=== PATIENT | female | born 1960 | race Caucasian/White ===

== ENCOUNTER 2024-10-30 09:39 | Day surgery (SDC) | payer BC, SELFPAY ==
[2024-10-26 13:39] VITALS: BMI 31.4
--- NOTE | 2024-10-29 00:01 | EKG_ITS ---
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
[2024-10-29 11:43] LABS: Basophils # (Auto) 0.1 Thou/mm3 (0.0-0.2); Basophils % (Auto) 1 % (0-2.5); Eosinophils # (Auto) 0.2 Thou/mm3 (0.0-0.5); Eosinophils % (Auto) 2 % (0-10); Hematocrit 40.5 % (36.0-46.0); Hemoglobin 12.9 g/dL (12.0-16.0); Immature Granulocytes % (Auto) 1 % (0-0); Immature Granulocytes Auto 0.08 Thou/mm3 (0.00-0.00); Lymphocytes # (Auto) 3.3 Thou/mm3 (1.0-4.8); Lymphocytes % (Auto) 32 % (10-50); Mean Corpuscular HGB Conc 31.9 g/dl (31.0-37.0); Mean Corpuscular Hemoglobin 29.8 pg (25.0-35.0); Mean Corpuscular Volume 94 fL (80-100); Monocytes # (Auto) 0.8 Thou/mm3 (0.0-0.8); Monocytes % (Auto) 8 % (0-12); Neutrophils # (Auto) 5.8 Thou/mm3 (1.8-7.7); Neutrophils % (Auto) 57 % (37-80); Nucleated Red Blood Cell % 0 /100 WBC (0); Platelet Count 483 Thou/mm3 (140-440); RDW Standard Deviation 46.5 fL (36.4-46.3); Red Blood Count 4.33 Miln/mm3 (4.00-5.20); White Blood Count 10.3 Thou/mm3 (3.6-11.0)
[2024-10-29 12:00] LABS: Partial Thromboplastin Time 24.8 Seconds (22.0-36.0); Prothrombin Time 10.5 Seconds (9.0-12.2)
[2024-10-29 12:04] LABS: Anion Gap 8 (7-16); BUN/Creatinine Ratio 15 Ratio (12-20); Blood Urea Nitrogen 15 mg/dL (9-23); Calcium 9.8 mg/dL (8.3-10.6); Carbon Dioxide 25.7 mMol/L (20.0-31.0); Chloride 106 mMol/L (98-107); Estimated Creatinine Clearance 55.7 mL/min (>60); Glucose 93 mg/dL (74-106); Osmolality,Calculated 280 (275-295); Potassium 3.9 mMol/L (3.4-5.1); Sodium 140 mMol/L (136-145); eGFR > 60 See Note
[2024-10-30] VITALS (13 sets, daily range): BP systolic 111–153; BP diastolic 64–79; PULSE 63–73; RESP 12–22; TEMP 36.2–36.9; O2SAT 97–99
--- NOTE | 2024-10-30 13:55 | PC.NURSE ---
venous shealth removed at 1340. 10min manual pressure applied. site is soft, flat, non tender, and no hematoma present.
--- NOTE | 2024-10-30 14:31 | ESOP_ITS ---
RE: ANCELMO CONROY : 1960 PROCEDURE PERFORMED: 1. Right and left heart cardiac catheterization, selective coronary angiogram, left ventricular angiogram, CPT 44858. 2. Conscious sedation 40 minute duration. 3. Ultrasound guidance access of the right radial artery. 4. Aortic root angiogram. DIAGNOSIS: Valvular heart disease, aortic and mitral regurgitation, abnormal stress test, angina pectoris. HISTORY AND INDICATIONS: The patient is a 64-year-old female with history of chronic mitral regurgitation as well as moderate to severe aortic regurgitation, hypertension, and sharpness within exertion. There was also mild aortic stenosis that lasted 2 meters per second. Because of symptomatic aortic valve regurgitation and also abnormal stresses, right and left heart catheterization and coronary angiogram was recommended for further assessment. DESCRIPTION OF PROCEDURE: The patient was brought to cardiac catheterization laboratory where she was given conscious sedation with 2 mg of Versed and 75 mcg fentanyl, right radial artery cannulated by micropuncture technique. After giving 1% hydrocodone, ultrasound guidance was used, documented, and right radial artery was cannulated and 6-Samoan Glidesheath was introduced. Right femoral vein was cannulated by Jomar's technique with 7-Samoan sheath was introduced. Right heart catheter was performed with Redfield-Emma catheter. The patient was recovered. Left heart catheterization was performed by 5-Samoan pigtail catheter. Left ventricular angiogram was performed. Subsequently, aortic root angiogram was also performed. Selective right and left coronary angiogram performed by TIG-4 diagnostic, 5-Samoan TIG-4 catheter and the patient tolerated the procedure well without complications. TR band was obtained. Hemostasis was secured in the right radial artery. The patient was also given radial cocktail right after the placement of the sheath. Femoral vein sheath was removed manual compression plate. No complications. Estimated blood loss 0. Coronary angiogram showed following findings: Right coronary artery large and dominant. Appeared normal. Left coronary artery system: Left main coronary artery is normal. Left anterior descending and circumflex arteries appear normal. No evidence of obstructive coronary artery disease, atherosclerosis. 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 Left ventricular angiogram showed normal left ventricular wall motion. Ejection fraction 70% with evidence of mitral valve prolapse and mild mitral regurgitation. Hemodynamics as follows: Right atrial pressure was found to be 4 mmHg, RV pressure is 16/3 mmHg, PA pressure 15/5 mmHg. PA wedge pressure is 4 mmHg. Left ventricular pressure is 118/7. Left ventricular pressure 120/7 mmHg. Aortic pressure is 116/87. There is a gradient of 5 across the aortic valve, mild stenosis. SUMMARY OF FINDINGS: 1. Normal nonobstructive epicardial coronary arteries. 2. Normal hemodynamics. 3. Normal right heart pressure. No pulmonary hypertension. 4. Moderate chronic aortic regurgitation with mild stenosis. 5. Mild mitral valve regurgitation. RECOMMENDATIONS: Continue medical management. No need for aortic valve replacement. Her shortness of breath is possibly not due to cardiac causes based of these findings. DT: 13:49:23 TT: 14:30:00 Ref: [id number] - TID: [id number]
--- NOTE | 2024-10-30 16:41 | PC.NURSE ---
1640 patient discharged home in wheelchair with all belongings.
== END 2024-10-30 16:40 | disposition home or self-care (01) ==
PROVIDERS: PCP Specialist; Referring Provider Internal Medicine Cardiovascular Disease; Visit Provider Internal Medicine Cardiovascular Disease
PROC: (CPT 93460; principal; 2024-10-30 10:30)
DX: I25.118 Atherosclerotic heart disease of native coronary artery with other forms of angina pectoris (principal); I35.0 Nonrheumatic aortic (valve) stenosis; I10 Essential (primary) hypertension; I34.0 Nonrheumatic mitral (valve) insufficiency; Z01.810 Encounter for preprocedural cardiovascular examination
CPT/HCPCS: 93460; 36415; 80048; 85025; 85610; 85730; 93005; 99152; 99153; A4649; C1769; C1887; C1894; J0171; J0461; J1643; J2250; J2310; J2371; J3010; J3490; Q9967; J1644; J2305

== ENCOUNTER → 2024-11-23 | Outpatient (CLI) | payer BC, SELFPAY ==
[2024-11-23 11:25] LABS: Basophils # (Auto) 0.1 Thou/mm3 (0.0-0.2); Basophils % (Auto) 1 % (0-2.5); Eosinophils # (Auto) 0.2 Thou/mm3 (0.0-0.5); Eosinophils % (Auto) 2 % (0-10); Hematocrit 39.4 % (36.0-46.0); Hemoglobin 12.5 g/dL (12.0-16.0); Immature Granulocytes % (Auto) 0 % (0-0); Immature Granulocytes Auto 0.03 Thou/mm3 (0.00-0.00); Lymphocytes # (Auto) 2.6 Thou/mm3 (1.0-4.8); Lymphocytes % (Auto) 33 % (10-50); Mean Corpuscular HGB Conc 31.7 g/dl (31.0-37.0); Mean Corpuscular Hemoglobin 29.6 pg (25.0-35.0); Mean Corpuscular Volume 93 fL (80-100); Monocytes # (Auto) 0.5 Thou/mm3 (0.0-0.8); Monocytes % (Auto) 7 % (0-12); Neutrophils # (Auto) 4.4 Thou/mm3 (1.8-7.7); Neutrophils % (Auto) 56 % (37-80); Nucleated Red Blood Cell % 0 /100 WBC (0); Platelet Count 552 Thou/mm3 (140-440); RDW Standard Deviation 47.1 fL (36.4-46.3); Red Blood Count 4.23 Miln/mm3 (4.00-5.20); White Blood Count 7.9 Thou/mm3 (3.6-11.0)
[2024-11-23 11:37] LABS: Parathyroid Hormone Intact 76.6 pg/ml (18.5-88.0)
[2024-11-23 11:38] LABS: Alanine Aminotransferase 20 U/L (10-49); Albumin, Serum 4.7 gm/dL (3.4-4.8); Albumin/Globulin Ratio 2.2 (1.2-2.2); Alkaline Phosphatase 82 U/L (46-116); Anion Gap 8 (7-16); Aspartate Amino Transferase 16 U/L (0-34); BUN/Creatinine Ratio 19 Ratio (12-20); Bilirubin,Total 0.5 mg/dL (0.3-1.2); Blood Urea Nitrogen 17 mg/dL (9-23); Calcium 10.2 mg/dL (8.3-10.6); Calcium (Corrected) 10.2 mg/dL (8.5-10.1); Cardiac Risk Estimate 2.6 RATIO (3.7-5.6); Chloride 106 mMol/L (98-107); Cholesterol 226 mg/dL (132-200); Creatinine (Component) 0.9 mg/dL (0.6-1.3); Globulin 2.1 gm/dL (2.3-3.5); Glucose 97 mg/dL (74-106); HDL Cholesterol 87 mg/dL (40-60); LDL Cholesterol,Calculated 123 mg/dL (0-130); Osmolality,Calculated 280 (275-295); Potassium 4.6 mMol/L (3.4-5.1); Sodium 140 mMol/L (136-145); Total Protein 6.8 gm/dL (5.7-8.2); Triglycerides 80 mg/dL (30-150); eGFR > 60 See Note
[2024-11-23 14:51] LABS: Ferritin 183 ng/mL (7.3-270.7); Total Iron Binding Capacity 324 mcg/dL (250-425)
[2024-11-23 15:01] LABS: Iron 143 mcg/dL (50-170); Percent Iron Saturation 44 % (20-55); Unsaturated Iron Binding 181 (225-295)
[2024-11-24 18:52] LABS: Folate 13.51 ng/mL (>5.38); Vitamin B12 551 pg/mL (211-911); Vitamin D 25 Hydroxy Total 38.7 ng/mL (7.3-40.2)
== END | disposition home or self-care (01) ==
LOC: COPL 10:01
PROVIDERS: PCP Specialist; Referring Provider Specialist; Visit Provider Specialist
DX: Z98.84 Bariatric surgery status (principal)
CPT/HCPCS: 36415; 80053; 80061; 82306; 82607; 82728; 82746; 83540; 83550; 83970; 85025

== ENCOUNTER → 2024-11-29 | Outpatient (CLI) | payer BC, SELFPAY ==
[2024-11-29 15:51] LABS: Basophils # (Auto) 0.1 Thou/mm3 (0.0-0.2); Basophils % (Auto) 1 % (0-2.5); Eosinophils # (Auto) 0.2 Thou/mm3 (0.0-0.5); Eosinophils % (Auto) 2 % (0-10); Hematocrit 38.7 % (36.0-46.0); Hemoglobin 12.3 g/dL (12.0-16.0); Immature Granulocytes % (Auto) 0 % (0-0); Immature Granulocytes Auto 0.04 Thou/mm3 (0.00-0.00); Lymphocytes # (Auto) 3.6 Thou/mm3 (1.0-4.8); Lymphocytes % (Auto) 32 % (10-50); Mean Corpuscular HGB Conc 31.8 g/dl (31.0-37.0); Mean Corpuscular Volume 94 fL (80-100); Monocytes # (Auto) 0.7 Thou/mm3 (0.0-0.8); Monocytes % (Auto) 6 % (0-12); Neutrophils # (Auto) 6.7 Thou/mm3 (1.8-7.7); Neutrophils % (Auto) 59 % (37-80); Nucleated Red Blood Cell % 0 /100 WBC (0); Platelet Count 518 Thou/mm3 (140-440); RDW Standard Deviation 46.6 fL (36.4-46.3); White Blood Count 11.4 Thou/mm3 (3.6-11.0)
== END | disposition home or self-care (01) ==
LOC: COPL 14:24
PROVIDERS: PCP Specialist; Referring Provider Specialist; Visit Provider Specialist
DX: D75.839 Thrombocytosis, unspecified (principal)
CPT/HCPCS: 36415; 85025

== ENCOUNTER → 2024-12-04 | Outpatient (CLI) | payer BC, SELFPAY ==
--- NOTE | 2024-12-04 14:06 | XR_ITS ---
Examination: Shoulder,right, 3 views Technique: Shoulder AP internal rotation, AP external rotation, Y view shoulder, 3 views Exam date and time :01/01/2025 1503 hours INDICATIONS: Injury to the shoulder July 2024 with persistent shoulder pain. FINDINGS: Prominent osteopenia Mild glenohumeral joint osteoarthritis Mild osteoarthritis acromioclavicular joint No fracture or shoulder dislocation IMPRESSION: Mild osteoarthritis
== END | disposition home or self-care (01) ==
LOC: CDIM 13:59
PROVIDERS: PCP Specialist; Referring Provider Specialist; Visit Provider Specialist
DX: M19.011 Primary osteoarthritis, right shoulder (principal); S49.91XS Unspecified injury of right shoulder and upper arm, sequela; X58.XXXS Exposure to other specified factors, sequela
CPT/HCPCS: 73030

== ENCOUNTER → 2025-01-16 | Outpatient (CLI) | payer BC, SELFPAY ==
--- NOTE | 2025-01-16 07:30 | XR_ITS ---
MRI shoulder, right, without contrast. Date and time: January 16, 2025 0754 hours INDICATIONS: Injury to the shoulder 6 months ago with shoulder pain Technique: Multiple axial, sagittal and coronal sections of the shoulder have been obtained. Siemens high-resolution 1.5 Juju MRI scanner is utilized. Axial fat-suppressed sections, TR 2350, TE 18 T2-weighted coronal fat-saturated images, TR 3500, TE 7100 T1-weighted coronal images, TR 500, TE 15 T2-weighted sagittal fat-saturated images, TR 3500, TE 57 T1-weighted sagittal sections, TR 504, TE 13. Findings: Suspicious for 4 mm full-thickness rotator cuff tear Subscapularis insertion is intact. Subscapularis bursa is not seen. Long head of the biceps is in the bicipital groove. No definite tear of the biceps superior labral anchor is seen. Retraction of the musculotendinous junction of the rotator cuff is not seen . Tendinosis pattern is severe. Distance between the acromium and humeral head is 7.2 mm Atrophy of the supraspinatus muscle is severe. Atrophy of the infraspinatus muscle is moderate. Sagittal sections demonstrate a horizontal acromion. Acromioclavicular joint demonstrates mild osteoarthritis . Osacromiale is not identified. Fraying and irregularity anterior superior labral margins. Bony glenoid fossa on the sagittal sections does not demonstrate osseous defect. Occult fracture or area of avascular necrosis is not seen. Acromioclavicular joint separation is not visible. Defect in the posterolateral margin of the humeral head is not seen Impression: Suspicious for 4 mm full-thickness rotator cuff tear, recommend this patient return for MR arthrography followed by post intra-articular MR images of the shoulder Fraying and irregularity anterior superior labral margins
== END | disposition home or self-care (01) ==
PROVIDERS: PCP Specialist; Referring Provider Specialist; Visit Provider Specialist
DX: M25.811 Other specified joint disorders, right shoulder (principal)
CPT/HCPCS: 73221

== ENCOUNTER → 2025-05-08 | Outpatient (CLI) | payer BC, SELFPAY ==
[2025-05-08 16:51] LABS: Basophils # (Auto) 0.1 Thou/mm3 (0.0-0.2); Basophils % (Auto) 1 % (0-2.5); Eosinophils # (Auto) 0.1 Thou/mm3 (0.0-0.5); Eosinophils % (Auto) 1 % (0-10); Hematocrit 37.4 % (36.0-46.0); Hemoglobin 12.0 g/dL (12.0-16.0); Immature Granulocytes Auto 0.03 Thou/mm3 (0.00-0.00); Lymphocytes # (Auto) 3.6 Thou/mm3 (1.0-4.8); Lymphocytes % (Auto) 42 % (10-50); Mean Corpuscular HGB Conc 32.1 g/dl (31.0-37.0); Mean Corpuscular Hemoglobin 30.2 pg (25.0-35.0); Mean Corpuscular Volume 94 fL (80-100); Monocytes # (Auto) 0.6 Thou/mm3 (0.0-0.8); Monocytes % (Auto) 6 % (0-12); Neutrophils # (Auto) 4.3 Thou/mm3 (1.8-7.7); Neutrophils % (Auto) 49 % (37-80); Nucleated Red Blood Cell # 0.00 Thou/mm3 (0.00-0.00); Nucleated Red Blood Cell % 0 /100 WBC (0); Platelet Count 521 Thou/mm3 (140-440); RDW Standard Deviation 47.7 fL (36.4-46.3); Red Blood Count 3.97 Miln/mm3 (4.00-5.20); White Blood Count 8.6 Thou/mm3 (3.6-11.0)
[2025-05-08 17:15] LABS: Ferritin 215 ng/mL (7.3-270.7); Iron 65 mcg/dL (50-170); Percent Iron Saturation 22 % (20-55); Total Iron Binding Capacity 285 mcg/dL (250-425); Unsaturated Iron Binding 220 (225-295)
[2025-05-08 17:17] LABS: Alanine Aminotransferase 14 U/L (10-49); Albumin, Serum 4.1 gm/dL (3.4-4.8); Albumin/Globulin Ratio 1.9 (1.2-2.2); Alkaline Phosphatase 66 U/L (46-116); Anion Gap 10 (7-16); Aspartate Amino Transferase 16 U/L (0-34); BUN/Creatinine Ratio 15 Ratio (12-20); Bilirubin,Total 0.5 mg/dL (0.3-1.2); Blood Urea Nitrogen 15 mg/dL (9-23); Calcium 9.4 mg/dL (8.3-10.6); Calcium (Corrected) 9.4 mg/dL (8.5-10.1); Carbon Dioxide 24.7 mMol/L (20.0-31.0); Chloride 108 mMol/L (98-107); Creatinine (Component) 1.0 mg/dL (0.6-1.3); Globulin 2.2 gm/dL (2.3-3.5); Glucose 95 mg/dL (74-106); Osmolality,Calculated 285 (275-295); Potassium 3.9 mMol/L (3.4-5.1); Sodium 143 mMol/L (136-145); Total Protein 6.3 gm/dL (5.7-8.2); eGFR > 60 See Note
[2025-05-08 17:36] LABS: Folate 6.95 ng/mL (>5.38); Vitamin B12 > 2000 pg/mL (211-911)
== END | disposition home or self-care (01) ==
LOC: SCTO 15:30
PROVIDERS: PCP Specialist; Referring Provider Internal Medicine Hematology & Oncology; Visit Provider Internal Medicine Hematology & Oncology
DX: D75.839 Thrombocytosis, unspecified (principal)
CPT/HCPCS: 36415; 80053; 82607; 82728; 82746; 83540; 83550; 85025

== ENCOUNTER 2025-05-09 09:55 | Outpatient (RCR) | payer BC, SELFPAY | END 2025-05-30 23:59 | disposition home or self-care (01) | LOC: SCTC 09:55 | PROVIDERS: PCP Specialist; Referring Provider Specialist; Visit Provider Nurse Practitioner Family | DX: D75.839 Thrombocytosis, unspecified (principal); Z98.84 Bariatric surgery status | CPT/HCPCS: 99212; G0463 ==

== ENCOUNTER → 2025-05-15 | Outpatient (CLI) | payer BC, SELFPAY ==
--- NOTE | 2025-05-15 15:30 | EKG_ITS ---
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
[2025-05-15 16:32] LABS: Basophils # (Auto) 0.1 Thou/mm3 (0.0-0.2); Basophils % (Auto) 1 % (0-2.5); Eosinophils # (Auto) 0.1 Thou/mm3 (0.0-0.5); Eosinophils % (Auto) 1 % (0-10); Hematocrit 39.1 % (36.0-46.0); Hemoglobin 12.6 g/dL (12.0-16.0); Immature Granulocytes Auto 0.04 Thou/mm3 (0.00-0.00); Lymphocytes # (Auto) 3.9 Thou/mm3 (1.0-4.8); Lymphocytes % (Auto) 35 % (10-50); Mean Corpuscular HGB Conc 32.2 g/dl (31.0-37.0); Mean Corpuscular Hemoglobin 30.1 pg (25.0-35.0); Mean Corpuscular Volume 94 fL (80-100); Monocytes # (Auto) 0.7 Thou/mm3 (0.0-0.8); Monocytes % (Auto) 6 % (0-12); Neutrophils # (Auto) 6.4 Thou/mm3 (1.8-7.7); Neutrophils % (Auto) 57 % (37-80); Nucleated Red Blood Cell # 0.00 Thou/mm3 (0.00-0.00); Nucleated Red Blood Cell % 0 /100 WBC (0); Platelet Count 520 Thou/mm3 (140-440); RDW Standard Deviation 46.6 fL (36.4-46.3); Red Blood Count 4.18 Miln/mm3 (4.00-5.20); White Blood Count 11.2 Thou/mm3 (3.6-11.0)
[2025-05-15 16:44] LABS: Alanine Aminotransferase 12 U/L (10-49); Albumin, Serum 4.2 gm/dL (3.4-4.8); Albumin/Globulin Ratio 1.8 (1.2-2.2); Alkaline Phosphatase 78 U/L (46-116); Anion Gap 11 (7-16); Aspartate Amino Transferase 15 U/L (0-34); BUN/Creatinine Ratio 15 Ratio (12-20); Bilirubin,Total 0.5 mg/dL (0.3-1.2); Blood Urea Nitrogen 15 mg/dL (9-23); Calcium 9.3 mg/dL (8.3-10.6); Calcium (Corrected) 9.3 mg/dL (8.5-10.1); Carbon Dioxide 23.9 mMol/L (20.0-31.0); Chloride 107 mMol/L (98-107); Creatinine (Component) 1.0 mg/dL (0.6-1.3); Globulin 2.3 gm/dL (2.3-3.5); Glucose 87 mg/dL (74-106); Osmolality,Calculated 282 (275-295); Potassium 4.4 mMol/L (3.4-5.1); Sodium 142 mMol/L (136-145); Total Protein 6.5 gm/dL (5.7-8.2); eGFR > 60 See Note
== END | disposition home or self-care (01) ==
LOC: COPL 14:59
PROVIDERS: PCP Specialist; Referring Provider Orthopaedic Surgery; Visit Provider Orthopaedic Surgery
DX: M75.111 Incomplete rotator cuff tear or rupture of right shoulder, not specified as traumatic (principal); M25.511 Pain in right shoulder
CPT/HCPCS: 36415; 80053; 85025; 93005

== ENCOUNTER → 2025-05-22 | Outpatient (CLI) | payer BC, SELFPAY ==
[2025-05-22 16:38] LABS: Basophils # (Auto) 0.1 Thou/mm3 (0.0-0.2); Basophils % (Auto) 1 % (0-2.5); Eosinophils # (Auto) 0.1 Thou/mm3 (0.0-0.5); Eosinophils % (Auto) 1 % (0-10); Hematocrit 37.6 % (36.0-46.0); Hemoglobin 12.4 g/dL (12.0-16.0); Immature Granulocytes Auto 0.03 Thou/mm3 (0.00-0.00); Lymphocytes # (Auto) 3.4 Thou/mm3 (1.0-4.8); Lymphocytes % (Auto) 35 % (10-50); Mean Corpuscular HGB Conc 33.0 g/dl (31.0-37.0); Mean Corpuscular Hemoglobin 30.0 pg (25.0-35.0); Mean Corpuscular Volume 91 fL (80-100); Monocytes # (Auto) 0.6 Thou/mm3 (0.0-0.8); Monocytes % (Auto) 7 % (0-12); Neutrophils # (Auto) 5.4 Thou/mm3 (1.8-7.7); Neutrophils % (Auto) 56 % (37-80); Nucleated Red Blood Cell # 0.00 Thou/mm3 (0.00-0.00); Nucleated Red Blood Cell % 0 /100 WBC (0); Platelet Count 509 Thou/mm3 (140-440); RDW Standard Deviation 45.9 fL (36.4-46.3); Red Blood Count 4.13 Miln/mm3 (4.00-5.20); White Blood Count 9.7 Thou/mm3 (3.6-11.0)
== END | disposition home or self-care (01) ==
LOC: COPL 14:49
PROVIDERS: PCP Specialist; Referring Provider Specialist; Visit Provider Specialist
DX: D75.839 Thrombocytosis, unspecified (principal)
CPT/HCPCS: 36415; 85025

== ENCOUNTER → 2025-07-04 | Outpatient (CLI) | payer BC, SELFPAY ==
[2025-07-04 15:02] LABS: Basophils # (Auto) 0.1 Thou/mm3 (0.0-0.2); Basophils % (Auto) 1 % (0-2.5); Eosinophils # (Auto) 0.1 Thou/mm3 (0.0-0.5); Eosinophils % (Auto) 1 % (0-10); Hematocrit 36.5 % (36.0-46.0); Hemoglobin 11.7 g/dL (12.0-16.0); Immature Granulocytes Auto 0.06 Thou/mm3 (0.00-0.00); Immature Reticulocyte Fraction 11.3 % (3.0-15.9); Lymphocytes # (Auto) 3.1 Thou/mm3 (1.0-4.8); Lymphocytes % (Auto) 27 % (10-50); Mean Corpuscular HGB Conc 32.1 g/dl (31.0-37.0); Mean Corpuscular Hemoglobin 30.5 pg (25.0-35.0); Mean Corpuscular Volume 95 fL (80-100); Monocytes # (Auto) 0.8 Thou/mm3 (0.0-0.8); Monocytes % (Auto) 7 % (0-12); Neutrophils # (Auto) 7.6 Thou/mm3 (1.8-7.7); Neutrophils % (Auto) 64 % (37-80); Nucleated Red Blood Cell # 0.00 Thou/mm3 (0.00-0.00); Nucleated Red Blood Cell % 0 /100 WBC (0); Platelet Count 501 Thou/mm3 (140-440); RDW Standard Deviation 48.7 fL (36.4-46.3); Red Blood Count 3.83 Miln/mm3 (4.00-5.20); Reticulocyte % (Auto) 1.6 % (0.5-1.5); Reticulocyte Absolute Auto 61.3 Biln/L (25.0-75.0); Reticulocyte Hgb Content 35.2 pg (28.0-35.0); White Blood Count 11.7 Thou/mm3 (3.6-11.0)
[2025-07-04 15:18] LABS: Folate 4.38 ng/mL (>5.38); Vitamin B12 339 pg/mL (211-911)
[2025-07-04 15:19] LABS: Ferritin 291 ng/mL (7.3-270.7); Iron 96 mcg/dL (50-170); Percent Iron Saturation 33 % (20-55); Total Iron Binding Capacity 284 mcg/dL (250-425); Unsaturated Iron Binding 188 (225-295)
[2025-07-04 15:54] LABS: Alanine Aminotransferase 12 U/L (10-49); Albumin, Serum 4.1 gm/dL (3.4-4.8); Albumin/Globulin Ratio 2.2 (1.2-2.2); Alkaline Phosphatase 77 U/L (46-116); Anion Gap 13 (7-16); Aspartate Amino Transferase 10 U/L (0-34); BUN/Creatinine Ratio 17 Ratio (12-20); Bilirubin,Total 0.4 mg/dL (0.3-1.2); Blood Urea Nitrogen 15 mg/dL (9-23); Calcium 10.2 mg/dL (8.3-10.6); Calcium (Corrected) 10.2 mg/dL (8.5-10.1); Carbon Dioxide 22.2 mMol/L (20.0-31.0); Chloride 109 mMol/L (98-107); Creatinine (Component) 0.9 mg/dL (0.6-1.3); Globulin 1.9 gm/dL (2.3-3.5); Glucose 82 mg/dL (74-106); LDH (Lactate Dehydrogenase) 188 U/L (120-246); Osmolality,Calculated 286 (275-295); Potassium 4.5 mMol/L (3.4-5.1); Sodium 144 mMol/L (136-145); Total Protein 6.0 gm/dL (5.7-8.2); eGFR > 60 See Note
[2025-07-04 16:03] LABS: Uric Acid 4.4 mg/dL (3.1-7.8)
[2025-07-11 06:59] LABS: Haptoglobin* 165 mg/dL (43-212)
== END | disposition home or self-care (01) ==
LOC: SCTO 14:03
PROVIDERS: PCP Specialist; Referring Provider Nurse Practitioner Family; Visit Provider Nurse Practitioner Family
DX: D75.839 Thrombocytosis, unspecified (principal)
CPT/HCPCS: 36415; 80053; 82607; 82728; 82746; 83010; 83540; 83550; 83615; 84550; 85025; 85046

== ENCOUNTER 2025-07-08 14:57 | Outpatient (RCR) | payer BC, SELFPAY | END 2025-07-30 23:59 | disposition home or self-care (01) | LOC: SCTC 14:57 | PROVIDERS: PCP Specialist; Referring Provider Specialist; Visit Provider Nurse Practitioner Family | DX: D75.839 Thrombocytosis, unspecified (principal); I10 Essential (primary) hypertension; Z98.84 Bariatric surgery status | CPT/HCPCS: 99212; G0463 ==

== ENCOUNTER → 2025-07-26 | Outpatient (CLI) | payer BC, SELFPAY ==
[2025-07-26 12:18] LABS: Basophils # (Auto) 0.1 Thou/mm3 (0.0-0.2); Basophils % (Auto) 1 % (0-2.5); Eosinophils # (Auto) 0.1 Thou/mm3 (0.0-0.5); Eosinophils % (Auto) 1 % (0-10); Hematocrit 40.2 % (36.0-46.0); Hemoglobin 12.7 g/dL (12.0-16.0); Immature Granulocytes Auto 0.05 Thou/mm3 (0.00-0.00); Lymphocytes # (Auto) 3.9 Thou/mm3 (1.0-4.8); Lymphocytes % (Auto) 44 % (10-50); Mean Corpuscular HGB Conc 31.6 g/dl (31.0-37.0); Mean Corpuscular Hemoglobin 30.0 pg (25.0-35.0); Mean Corpuscular Volume 95 fL (80-100); Monocytes # (Auto) 0.5 Thou/mm3 (0.0-0.8); Monocytes % (Auto) 6 % (0-12); Neutrophils # (Auto) 4.2 Thou/mm3 (1.8-7.7); Neutrophils % (Auto) 48 % (37-80); Nucleated Red Blood Cell # 0.00 Thou/mm3 (0.00-0.00); Nucleated Red Blood Cell % 0 /100 WBC (0); Platelet Count 554 Thou/mm3 (140-440); RDW Standard Deviation 47.8 fL (36.4-46.3); Red Blood Count 4.24 Miln/mm3 (4.00-5.20); White Blood Count 8.9 Thou/mm3 (3.6-11.0)
[2025-07-26 12:51] LABS: Alanine Aminotransferase 18 U/L (10-49); Albumin, Serum 4.3 gm/dL (3.4-4.8); Albumin/Globulin Ratio 2.0 (1.2-2.2); Alkaline Phosphatase 99 U/L (46-116); Anion Gap 11 (7-16); Aspartate Amino Transferase 18 U/L (0-34); BUN/Creatinine Ratio 13 Ratio (12-20); Bilirubin,Total 0.6 mg/dL (0.3-1.2); Blood Urea Nitrogen 12 mg/dL (9-23); Calcium 10.0 mg/dL (8.3-10.6); Calcium (Corrected) 10.0 mg/dL (8.5-10.1); Carbon Dioxide 22.8 mMol/L (20.0-31.0); Chloride 108 mMol/L (98-107); Creatinine (Component) 0.9 mg/dL (0.6-1.3); Globulin 2.2 gm/dL (2.3-3.5); Glucose 121 mg/dL (74-106); Osmolality,Calculated 283 (275-295); Potassium 3.6 mMol/L (3.4-5.1); Sodium 142 mMol/L (136-145); Total Protein 6.5 gm/dL (5.7-8.2); eGFR > 60 See Note
== END | disposition home or self-care (01) ==
LOC: SCTO 11:47
PROVIDERS: PCP Specialist; Referring Provider Nurse Practitioner Family; Visit Provider Nurse Practitioner Family
DX: D75.839 Thrombocytosis, unspecified (principal)
CPT/HCPCS: 36415; 80053; 85025

== ENCOUNTER 2025-08-07 14:21 | Outpatient (RCR) | payer BC, SELFPAY | END 2025-08-30 23:59 | disposition home or self-care (01) | LOC: SCTC 14:21 | PROVIDERS: PCP Specialist; Referring Provider Specialist; Visit Provider Nurse Practitioner Family | DX: D75.839 Thrombocytosis, unspecified (principal); Z98.84 Bariatric surgery status; I10 Essential (primary) hypertension; F41.9 Anxiety disorder, unspecified | CPT/HCPCS: 99212; G0463 ==

== ENCOUNTER → 2025-08-19 | Outpatient (CLI) | payer BC, SELFPAY ==
[2025-08-19 10:45] LABS: Basophils # (Auto) 0.1 Thou/mm3 (0.0-0.2); Basophils % (Auto) 1 % (0-2.5); Eosinophils # (Auto) 0.1 Thou/mm3 (0.0-0.5); Eosinophils % (Auto) 1 % (0-10); Hematocrit 38.9 % (36.0-46.0); Hemoglobin 12.3 g/dL (12.0-16.0); Immature Granulocytes Auto 0.03 Thou/mm3 (0.00-0.00); Lymphocytes # (Auto) 3.9 Thou/mm3 (1.0-4.8); Lymphocytes % (Auto) 47 % (10-50); Mean Corpuscular HGB Conc 31.6 g/dl (31.0-37.0); Mean Corpuscular Hemoglobin 30.1 pg (25.0-35.0); Mean Corpuscular Volume 95 fL (80-100); Monocytes # (Auto) 0.5 Thou/mm3 (0.0-0.8); Monocytes % (Auto) 6 % (0-12); Neutrophils # (Auto) 3.6 Thou/mm3 (1.8-7.7); Neutrophils % (Auto) 45 % (37-80); Nucleated Red Blood Cell # 0.00 Thou/mm3 (0.00-0.00); Nucleated Red Blood Cell % 0 /100 WBC (0); Platelet Count 516 Thou/mm3 (140-440); RDW Standard Deviation 45.5 fL (36.4-46.3); Red Blood Count 4.09 Miln/mm3 (4.00-5.20); White Blood Count 8.2 Thou/mm3 (3.6-11.0)
[2025-08-19 10:54] LABS: Glucose Estimated Average 108 mg/dL (80-131); Hemoglobin A1C 5.4 % Hgb (4.8-6.0)
== END | disposition home or self-care (01) ==
LOC: COPL 09:20
PROVIDERS: PCP Specialist; Referring Provider Specialist; Visit Provider Specialist
DX: R73.01 Impaired fasting glucose (principal); D75.839 Thrombocytosis, unspecified
CPT/HCPCS: 36415; 83036; 85025

== ENCOUNTER 2025-10-07 07:05 | Outpatient (CLI) | payer BC, SELFPAY ==
[2025-10-03 14:17] VITALS: BMI 26.9
[2025-10-04 08:44] LABS: Basophils # (Auto) 0.1 Thou/mm3 (0.0-0.2); Basophils % (Auto) 1 % (0-2.5); Eosinophils # (Auto) 0.2 Thou/mm3 (0.0-0.5); Eosinophils % (Auto) 2 % (0-10); Hematocrit 40.1 % (36.0-46.0); Hemoglobin 12.9 g/dL (12.0-16.0); Immature Granulocytes Auto 0.02 Thou/mm3 (0.00-0.00); Lymphocytes # (Auto) 3.4 Thou/mm3 (1.0-4.8); Lymphocytes % (Auto) 45 % (10-50); Mean Corpuscular HGB Conc 32.2 g/dl (31.0-37.0); Mean Corpuscular Hemoglobin 30.5 pg (25.0-35.0); Mean Corpuscular Volume 95 fL (80-100); Monocytes # (Auto) 0.5 Thou/mm3 (0.0-0.8); Monocytes % (Auto) 6 % (0-12); Neutrophils # (Auto) 3.4 Thou/mm3 (1.8-7.7); Neutrophils % (Auto) 45 % (37-80); Nucleated Red Blood Cell # 0.00 Thou/mm3 (0.00-0.00); Nucleated Red Blood Cell % 0 /100 WBC (0); Platelet Count 533 Thou/mm3 (140-440); RDW Standard Deviation 45.0 fL (36.4-46.3); Red Blood Count 4.23 Miln/mm3 (4.00-5.20); White Blood Count 7.5 Thou/mm3 (3.6-11.0)
[2025-10-04 08:51] LABS: INR 1.0 (0.9-1.3); Partial Thromboplastin Time 26.5 Seconds (22.0-36.0); Prothrombin Time 10.3 Seconds (9.0-12.2)
[2025-10-07] VITALS (12 sets, daily range): BP systolic 108–154; BP diastolic 59–90; PULSE 66–73; RESP 14–20; TEMP 36.4–36.8; O2SAT 96–100
[2025-10-07] MEDS: SODIUM CHLORIDE 0.9% 500 ML 500 ML 250 ML IV (08:00)
--- NOTE | 2025-10-07 08:00 | XR_ITS ---
Exam: CT-guided left iliac bone biopsy and bone marrow aspiration INDICATION: Hemopoietic disorder. DATE: 10/07/2025, 9:17 a.m. CTDI: 48.6 DLP: 641 PROCEDURE: After discussion of risks and benefits informed consent was obtained. The patient was brought to the CT scanner and placed prone on the exam table. Preliminary noncontrast enhanced CT demonstrated normal pelvic bony anatomy. The posterior left iliac bone was targeted for biopsy. Skin overlying the posterior aspect of the left iliac bone was cleaned and draped in normal sterile surgical fashion. 10 cc of 1% lidocaine was used for local anesthesia. Conscious sedation was begun with direct continuous nursing supervision. Using CT guidance a 13-gauge bone biopsy/bone marrow aspiration cannula was sequentially advanced into the posterior aspect of the left iliac bone under CT guidance. A single 13-gauge bone sample was obtained. 12 cc of bone marrow was aspirated. Pathology deemed the samples adequate at the time of the procedure. Cannula was withdrawn. Hemostasis was achieved. Post biopsy CT scan was performed which demonstrated no evidence of acute complication. Patient was transferred for the holding area for post procedural observation. IMPRESSION: Successful left iliac bone biopsy and bone marrow aspiration as above.
[2025-10-07] MEDS: fentaNYL CIT INJ 50 mCg/ML AMP 2ML 100 MCG IVP (09:31)
[2025-10-07] MEDS: LIDOCAINE INJ PF 1% 5 ML VIAL 22 ML INFL (09:33)
[2025-10-07] MEDS: MIDAZOLAM INJ 1 MG/ML VIAL 2 ML IVP (09:33)
[2025-10-07 10:07] LABS: Flow Cytometry* See Sep Rpt
--- NOTE | 2025-10-07 11:31 | PC.NURSE ---
1003 patient is awake, alert, breathing unlabored, s/p bone marrow biopsy and aspiration, dressing to left lower back has small amount of serosanguionous drainage, no active bleeding noted, report received from William FERRERA. Patient does not want to eat or drink anything at this time. 1106 patient is awake,alert, breathing unlabored, dressing to lower back with no active bleeding, discharge instructions given to patient and daughter, patient discharged home in wheelchair with all belongings.
== END 2025-10-07 11:06 | disposition home or self-care (01) ==
PROVIDERS: Radiology Diagnostic Radiology; PCP Specialist; Referring Provider Nurse Practitioner Family; Visit Provider Nurse Practitioner Family
DX: D75.838 Other thrombocytosis (principal)
CPT/HCPCS: 20220; 36415; 77012; 85025; 85610; 85730; 99152; J2250; J3010; J3490; J7999